=== PATIENT | male | born 1965 | race Caucasian/White ===

== ENCOUNTER → 2019-03-28 | Outpatient (REF) ==
--- NOTE | 2019-03-28 11:02 | REP ---
Clinical: Pain. Technique: AP, lateral, bilateral oblique and sunrise views of the left knee. Findings: Early moderate tricompartmental osteoarthritic degenerative changes are appreciated. Findings include increase sclerosis involving the medial tibial plateau and posterior patellar margin with associated joint space narrowing. Spurring/osteophyte formation also identified involving the tibiofemoral and patellofemoral joint spaces. No acute fracture dislocation. Pickrell view demonstrates fraying along the anterior patellar margin suggesting associated patellar tendinopathy. No obvious effusion. Impression: Early moderate tricompartmental osteoarthritic degenerative changes. Electronically Signed by Jerad Parker MD 03/28/2019 10:53 A
--- NOTE | 2019-03-28 11:31 | REP ---
Clinical: Pain and disability. Technique: AP, lateral, coned-down views of the lumbosacral spine. Findings: Alignment and lordosis maintained. There is no evidence for acute fracture / compression injury or subluxation. Mild scattered endplate sclerosis and minimal disc space narrowing noted. Impression: Mild multilevel degenerative changes include endplate sclerosis with minimal disc space narrowing. No acute fracture / compression injury or subluxation. Electronically Signed by Jerad Parker MD 03/28/2019 11:22 A
== END ==
LOC: M RAD 08:00 → M SMT 09:47 → EDSTATUS 10:45
PROVIDERS: ATTEND Internal Medicine
DX: M17.12 Unilateral primary osteoarthritis, left knee (principal); M51.9 Unspecified thoracic, thoracolumbar and lumbosacral intervertebral disc disorder